=== PATIENT | female | born 1965 | race Caucasian/White ===

== ENCOUNTER 2024-05-21 08:53 | Emergency (ER) | payer BC ==
[~2024-05-21] VITALS: Ht 167.6 cm; Wt 103.5 kg
[2024-05-21 08:56] VITALS: BP 160/90; PULSE 87; O2SAT 96
[2024-05-21 09:43] VITALS: RESP 16
[2024-05-21] MEDS: HYDROcodone/acetaminophen 10/325mg tab PO ONE (09:43)
[2024-05-21] MEDS ORDERED: HYDR-3972 PO (10:15)
[2024-05-21 11:40] VITALS: TEMP 98.6
== END 2024-05-21 11:43 | disposition home or self-care (01) ==
LOC: ER 08:54
DX: S52.352A Displaced comminuted fracture of shaft of radius, left arm, initial encounter for closed fracture (principal); S52.612A Displaced fracture of left ulna styloid process, initial encounter for closed fracture; W18.30XA Fall on same level, unspecified, initial encounter; Y93.89 Activity, other specified; Y92.89 Other specified places as the place of occurrence of the external cause; Y99.8 Other external cause status
CPT/HCPCS: 29125; 73110; 99283